=== PATIENT | male | born 1950 | race Caucasian/White ===

== ENCOUNTER 2016-04-13 08:19 | Day surgery (SDC) | payer BC, MEDICARE ==
[~2016-04-13 08:19] MED LIST: FENTANYL 250 MCG/5 ML AMP IV PRN; LACTATED RINGERS 1,000 ML IV SCH; MIDAZOLAM HCL 5 MG/5 ML VIAL IV PRN
[2016-04-13] MEDS ORDERED: LACTATED RINGERS 0 ML ONE (08:26)
[2016-04-13] MEDS ORDERED: IV START KIT ONE (08:26)
[2016-04-13] MEDS ORDERED: SODIUM CHLORIDE 0.9% 1,000 ML ONE (08:39)
[2016-04-13] MEDS ORDERED: SODIUM CHLORIDE 0.9% 1,000 ML IV SCH (09:15)
[2016-04-13] MEDS ORDERED: FENTANYL 5 ML ONE (09:34)
[2016-04-13] MEDS ORDERED: MIDAZOLAM HCL 5 MG/5 ML VIAL ONE (09:34)
--- NOTE | 2016-04-15 09:34 | SURGPATH ---
[facility] [address] [place] [id number] Patient Name: JORDAN ALVARENGA MR#: [id number] : 1950 Gender: M Specimen #: [id number] Collected: 04/13/2016 Received: 04/14/2016 Reported: 04/15/2016 Submitting Phys: LAURIE MARIE Copy To Phys: [facility] Clinical History / Pre-Operative Diagnosis: Surveillance Specimen Source / Surgical Procedure Performed: Sigmoid polyp 20 cm Interpretation: SIGMOID COLON, POLYP, BIOPSY: - HYPERPLASTIC POLYP Electronically Signed Out Angie Alexander M.D. Gross Description: The specimen is received in formalin labeled with the patient's name and "sigmoid polyp 20 cm". The specimen consists of a 0.6 x 0.5 x 0.4 cm fragment of brown soft tissue. The specimen is bisected and entirely submitted in one cassette. Microscopic Description: Sections show fragments of hyperplastic colonic mucosa without dysplasia. 1: 42814 K63.5
== END 2016-04-13 11:10 | disposition home or self-care (01) ==
LOC: SDC 08:19
PROVIDERS: ATTEND Internal Medicine Gastroenterology
PROC: 0DBN8ZX Excision of Sigmoid Colon, Via Natural or Artificial Opening Endoscopic, Diagnostic (ICD-10-PCS; principal; 2016-04-13)
DX: Z12.11 Encounter for screening for malignant neoplasm of colon (principal); D12.5 Benign neoplasm of sigmoid colon; K57.30 Diverticulosis of large intestine without perforation or abscess without bleeding; I25.10 Atherosclerotic heart disease of native coronary artery without angina pectoris; E11.9 Type 2 diabetes mellitus without complications; Z79.84 Long term (current) use of oral hypoglycemic drugs; Z88.5 Allergy status to narcotic agent
CPT/HCPCS: 45385; J3010; J2250; J7030